=== PATIENT | male | born 1940 | race Caucasian/White ===

== ENCOUNTER 2024-09-29 15:13 | Emergency (ER) | payer MEDICARE, SELFPAY ==
--- NOTE | ~2024-09-29 | XR_ITS ---
XR chest 1V portable Ordering provider: Emiliano Vo MD History: 84 years Male with . syncope . Comparison: None. FINDINGS: MEDIASTINUM: The cardiac silhouette is slightly enlarged. Congestive annie. LUNGS: No effusions or pneumothorax. Opacification in the left lung base suggestive of atelectasis ve rsus pneumonia. Bilateral interstitial thickening.. OTHER: No free air under the diaphragm. Degenerative changes of the spine. IMPRESSION: Left basilar atelectasis versus pneumonia. Bilateral interstitial thickening which may indicate pneumonitis versus pulmonary edema. Clinical cor relation advised. Possible underlying fibrotic changes. Reviewed, dictated and finalized at location A. IMPRESSION: Left basilar atelectasis versus pneumonia. Bilateral interstitial thickening which may indicate pneumonitis versus pulmona ry edema. Clinical correlation advised. Possible underlying fibrotic changes.
--- NOTE | ~2024-09-29 | CT_ITS ---
EXAMINATION: CTA chest abdomen pelvis DATE: 09/29/2024 15:44 INDICATION: Syncope, hypotension and free fluid around the liver TECHNIQUE: Computed tomographic angiography (CTA) of the chest, abdomen, and pelvis was performed wit h 100 mL Omnipaque-350 intravenous contrast. Volume-rendered 3D-reconstructions of the aorta and larg e arteries were constructed by the technologist on a separate workstation. Automated exposure control and iterative reconstruction technique were employed. The dose-length product was 1615.65 mGy-cm. COMPARISON: None FINDINGS: Chest: Mild emphysema. Dependent groundglass opacities and some smooth septal line thickening in both lungs also determination mild pulmonary edema and atelectasis versus less likely pneumonia. Unilateral calc ified pleural plaque along the posterior left lower lobe suggestive of prior exudative effusion. Ther e are few scattered small bilateral calcified pulmonary nodules consistent with old granulomatous dis ease. No pleural effusion. Cardiomegaly. Atherosclerotic coronary artery calcification. No pericardia l effusion. Thoracic aorta is normal in caliber with no dissection. Atherosclerotic plaque with moder ate to severe stenosis at the origin of the right subclavian artery. No pathologically enlarged abdom inal or pelvic lymphadenopathy. Cervical or cervical and mild thoracic spondylosis. Several old heale d anterior and posterior lower left rib fractures. Abdomen and pelvis: Cholecystectomy clips at the gallbladder fossa. Liver, pancreas and bilateral adrenal glands are norm al. There is likely age-related mild bilateral renal atrophy with small regions of more focal cortica l scarring which could represent sequela prior infection or infarction. Grade 5 splenic injury with i rregular contour to the spleen inferiorly where there is active extracapsular extravasation and large surrounding hematoma. There is a small to moderate amount of additional hemoperitoneum scattered thr oughout the remainder of the abdomen and pelvis. Mild diverticulosis along the descending and sigmoid colon without adjacent from trace stranding to suggest diverticulitis. Small bowel and appendix are normal. Gas and a suprapubic Patel catheter within the decompressed bladder. Prostatomegaly measuring 6.2 x 5.1 cm. Moderate lumbar spondylosis and moderate bilateral hip and sacroiliac osteoarthritis. IMPRESSION: 1. Grade 5 splenic injury with large perisplenic hematoma, active extracapsular extravasation and sma ll amount of more diffuse hemoperitoneum in the abdomen and pelvis. Dr. Nguyen discussed these find ings with Dr. Vo at 3:45 PM. 2. Dependent groundglass, reticular opacities and smooth septal line thickening in both lungs likely combination of dependent atelectasis and mild pulmonary edema. 3. Cardiomegaly. 4. 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 Reviewed, dictated and finalized at location B. IMPRESSION: 1. Grade 5 splenic injury with large perisplenic hematoma, active extracapsular extravasation and small amount of more diffuse hemoperitoneum in the abdomen a nd pelvis. Dr. Nguyen discussed these findings with Dr. Vo at 3:45 PM. 2. Dependent groundglass, reticular opacities and smooth septal line thickening in both lungs likely combination of dependent atelectasis and mild pulmonary e pavithra. 3. Cardiomegaly. 4. 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
[2024-09-29 15:10] VITALS: BP 58/46; PULSE 110; RESP 27; TEMP 36.6; O2SAT 98
[2024-09-29 15:37] VITALS: BP 58/40; PULSE 78
[2024-09-29] MEDS: NOREPINEPHRINE 8 MG/D5W 250 ML 8 MG/250 ML BAG 6 MG (15:37)
[2024-09-29] MEDS: LACTATED RINGERS 1,000 ML 999 ML IV CONT ×3 (15:47)
--- NOTE | 2024-09-29 15:47 | ECG_ITS ---
Test Date: 2024-09-29 15:17:29 Measurements Intervals [place] Rate: 75 P: 29 TX: 164 QRS: -27 QRSD: 130 T: 43 QT: 405 QTc: 455 Interpretive Statements SINUS RHYTHM RIGHT BUNDLE BRANCH BLOCK ABNORMAL ECG No previous ECG available for comparison Electronically Signed On 09-29-2024 15:58:57 CDT by Javad Ritchie D.O.
[2024-09-29 15:48] LABS: Basophils Percent Auto 0.2 % (0.2-1.2); Eosinophils Absolute Auto 0.2 K/mm3 (0-0.3); Eosinophils Percent Auto 1.8 % (0-4.4); Hematocrit 25.1 % (42.0-52.0); Hemoglobin 7.6 g/dL (14.0-18.0); Immature Granulocyte Absolute 0.02 K/mm3 (0.00-0.031); Immature Granulocyte Percent A 0.2 % (0-0.5); Lymphocytes Absolute Auto 3.44 K/mm3 (0.9-3.2); Mean Corpuscular HGB Conc 30.3 g/dl (32-36); Mean Corpuscular Volume 92.6 fl (80-100); Mean Platelet Volume 10.2 fl (7.4-10.4); Monocytes Absolute Auto 0.7 K/mm3 (0.1-0.6); Monocytes Percent Auto 8.6 % (2.6-8.5); Neutrophils Percent Auto 48.2 % (45.5-73.1); Platelet Count Result 176 k/mm3 (150-375); Red Blood Count 2.71 M/mm3 (4.6-6.20); Red Cell Distribution Width 17.6 % (11.5-14.5); White Blood Count 8.4 K/mm3 (4.5-10.0)
[2024-09-29 15:58] LABS: Alanine Aminotransferase 13 U/L (6-50); Albumin Level 2.6 g/dL (3.5-5.1); Alkaline Phosphatase 65 U/L (38-126); Anion Gap 9 mmol/L (4-12); Aspartate Amino Transferase 23 U/L (17-59); Bilirubin,Total 0.6 mg/dL (0.2-1.3); Blood Urea Nitrogen 16 mg/dL (9-20); Calcium 7.8 mg/dL (8.4-10.2); Carbon Dioxide 20 mmol/L (22-30); Chloride 112 mmol/L (98-107); Estimated Glomerular Filt Rate > 60; Glucose 128 mg/dL (65-110); Lipase 51 U/L (23-300); Magnesium 1.6 mg/dL (1.6-2.3); Phosphorus 3.3 mg/dL (2.5-4.5); Potassium 4.2 mmol/L (3.4-5.0); Sodium 141 mmol/L (137-145)
[2024-09-29 16:04] VITALS: PULSE 92
[2024-09-29 16:05] VITALS: BP 60/43; PULSE 92; RESP 35; O2SAT 93
[2024-09-29] MEDS: MORPHINE SULFATE (*CRX) 4 MG/ML INJ IV PUSH (16:06)
[2024-09-29] MEDS: LORazepam INJ (*CRX) 2 MG/ML VIAL IV PUSH (16:06)
--- NOTE | 2024-09-29 16:09 | ED_ITS ---
HPI - General Adult General Chief complaint: Syncope Stated complaint: hypotensive Time Seen by Provider: 09/29/24 15:27 History of Present Illness HPI narrative: This is an 84 year male presenting ED after a syncopal event. Patient was getting out of his car to use the restroom [place]. He had a fall inside the restaurant that was unwitnessed by his family. He was helped by bystanders and then went back to the car. Went back to the car family was trying to treat the abrasion his knee, however he became pale diaphoretic and syncopized. EMS was called was found have blood pressure of 60/40. To hospital for evaluation. Patient's mental status is poor. History obtained from the family. Exam 2 Narrative: APPEARANCE: Pale, diaphoretic, lethargic Head: atraumatic. EYES: EOMI, NOSE: Atraumatic NECK: Trachea midline RESPIRATORY: Tachypneic, clear lung sounds CARDIOVASCULAR: +2 pulses in all extremities ABDOMINAL: Distended, point of care fast exam showed free fluid the distal tip of the liver MUSCULOSKELETAl: No obvious deformities NEURO: Lethargic, moving for 4 extremities to command SKIN:: Diaphoretic pale cool PSYCHIATRIC: Lethargic Course Vital Signs Vital signs: Vital Signs Temperature 97.8 F 09/29/24 15:10 Pulse Rate 110 H 09/29/24 15:10 Respiratory Rate 27 H 09/29/24 15:10 Blood Pressure 58/46 L 09/29/24 15:10 Pulse Oximetry 98 09/29/24 15:10 Oxygen Delivery Room Air 09/29/24 15:10 Temperature 97.8 F 09/29/24 15:10 Pulse Rate 92 09/29/24 16:05 Respiratory Rate 35 H 09/29/24 16:05 Blood Pressure 60/43 L 09/29/24 16:05 Pulse Oximetry 93 09/29/24 16:05 Oxygen Delivery Room Air 09/29/24 15:10 Medical Decision Making [facility] Narrative Medical decision making narrative: -Course: 84-year-old male with multiple comorbidities presenting after fall and a syncopal event. On arrival patient is toxic appearing with low blood pressures, decreased mental status syncopal clammy skin. Point of care ultrasound showed free fluid in the patient's belly. Patient was bolused 2 L started on peripheral levo. CTA was ordered chest abdomen pelvis revealing a grade 5 splenic injury with large splenic hematoma. Goals of care were discussed with the patient his . Patient is DNR DNI. Patient is a poor surgical candidate given his age/comorbidities and clinical presentation. After discussing his condition with patient his and daughter decision was made to make him comfort measures only. Patient given morphine and Ativan. TOD: 16:25 -DDX includes but is not limited to: Splenic laceration, abdominal aortic dissection, bowel rupture Vital Signs Vital Signs: Vital Signs Temperature 97.8 F 09/29/24 15:10 Pulse Rate 110 H 09/29/24 15:10 Respiratory Rate 27 H 09/29/24 15:10 Blood Pressure 58/46 L 09/29/24 15:10 Pulse Oximetry 98 09/29/24 15:10 Oxygen Delivery Room Air 09/29/24 15:10 Temperature 97.8 F 09/29/24 15:10 Pulse Rate 92 09/29/24 16:05 Respiratory Rate 35 H 09/29/24 16:05 Blood Pressure 60/43 L 09/29/24 16:05 Pulse Oximetry 93 09/29/24 16:05 Oxygen Delivery Room Air 09/29/24 15:10 Lab Data 09/29/24 15:29 09/29/24 15:29 Labs: Lab Results 09/29/24 Range/Units 15:29 WBC 8.4 (4.5-10.0) K/mm3 RBC 2.71 L (4.6-6.20) M/mm3 Hgb 7.6 L (14.0-18.0) g/dL Hct 25.1 L (42.0-52.0) % MCV 92.6 (80-100) fl MCH 28.0 (26-34) pg MCHC 30.3 L (32-36) g/dl RDW 17.6 H (11.5-14.5) % Plt Count 176 (150-375) k/mm3 MPV 10.2 (7.4-10.4) fl Immature Gran % (Auto) 0.2 (0-0.5) % Neut % (Auto) 48.2 (45.5-73.1) % Lymph % (Auto) 41.0 (18.3-44.2) % [place] % (Auto) 8.6 H (2.6-8.5) % Eos % (Auto) 1.8 (0-4.4) % Baso % (Auto) 0.2 (0.2-1.2) % Lymph # (Auto) 3.44 H (0.9-3.2) K/mm3 [place] # (Auto) 0.7 H (0.1-0.6) K/mm3 Eos # (Auto) 0.2 (0-0.3) K/mm3 Baso # (Auto) 0.0 (0.0-0.1) K/mm3 Abs Immat Gran (auto) 0.02 (0.00-0.031) K/mm3 Absolute Neuts (auto) 4.0 (1.3-6.7) K/mm3 Absolute Nucleated RBC 0.000 (0.0-0.012) K/mm3 Nucleated RBC % 0.0 (0.0-0.2) % PT 15.0 H (11.1-14.7) Seconds INR 1.2 APTT 26.6 (22.3-36.8) Seconds Sodium 141 (137-145) mmol/L Potassium 4.2 (3.4-5.0) mmol/L Chloride 112 H (98-107) mmol/L Carbon Dioxide 20 L (22-30) mmol/L Anion Gap 9 (4-12) mmol/L BUN 16 (9-20) mg/dL Creatinine 0.96 (0.7-1.3) mg/dL Estim Creat Clear Calc Not Reportable Estimated GFR > 60 (59 - ) Glucose 128 H (65-110) mg/dL Calcium 7.8 L (8.4-10.2) mg/dL Phosphorus 3.3 (2.5-4.5) mg/dL Magnesium 1.6 (1.6-2.3) mg/dL Total Bilirubin 0.6 (0.2-1.3) mg/dL AST 23 (17-59) U/L ALT 13 (6-50) U/L Alkaline Phosphatase 65 (38-126) U/L Troponin I 0.014 (0.000-0.034) ng/mL Total Protein 5.0 L (6.3-8.2) g/dL Albumin 2.6 L (3.5-5.1) g/dL Lipase 51 (23-300) U/L Blood Type Pending Antibody Screen Pending Crossmatch See Detail Discharge Plan Discharge Clinical Impression: Major laceration of spleen Patient Disposition: Condition: Stable Patient Language: Taiwanese Follow-up/Referrals: UNKNOWN,DOCTOR [Primary Care Provider] -
[2024-09-29 16:10] LABS: Troponin I 0.014 ng/mL (0.000-0.034)
[2024-09-29 16:15] LABS: INR 1.2
[2024-09-29 16:16] LABS: Partial Thromboplastin Time 26.6 Seconds (22.3-36.8)
--- NOTE | 2024-09-29 16:18 | PCCCNOTE ---
Asked by the ED charge nurse to call a sample grader. Called [phone] and spoke with Father Zachary, stated he's about 15-20 minutes away however on his way. ED charge nurse updated.-jacquelyn
== END 2024-09-29 16:25 | disposition expired ==
PROVIDERS: Emergency Provider Emergency Medicine
DX: S36.032A Major laceration of spleen, initial encounter (principal); W18.30XA Fall on same level, unspecified, initial encounter
CPT/HCPCS: 36415; 71045; 71275; 74174; 80053; 83690; 83735; 84100; 84484; 85025; 85610; 85730; 86850; 86900; 86901; 93005; 96361; 96374; 96375; 99284; J2060; J2270; J7030; J7050; J7120; P9016; Q9967